=== PATIENT | female | born 1940 | race Caucasian/White ===

== ENCOUNTER 2021-08-01 07:26 | Inpatient (IN) ==
[2021-07-31 12:52] LABS: Basophils % 0.7 % (0.0-0.8); Eosinophils # 0.3 10*3/uL (0.0-0.87); Eosinophils % 6.2 % (0.00-10.9); Hemoglobin 12.1 GM/DL (12.0-16.0); Immature Granulocytes % 0.2 %; Immature Granulocytes Absolute 0.01 #; Lymphocytes # 1.6 10*3/uL (1.4-4.0); Mean Corpuscular HGB Conc 30.3 GM/DL (32-36); Mean Corpuscular Volume 89.7 FL (87-102); Mean Platelet Volume 12.2 FL (9.6-12.0); Monocytes % 5.6 % (1.7-12.7); Neutrophils % 58.3 % (38.7-73.9); Platelet Count 311 T/CUMM (130-400); Red Blood Count 4.46 MC/CUMM (3.8-5.5); Red Cell Distribution Width 15.4 % (9.3-17.3); White Blood Count 5.3 T/CUMM (4-12)
[2021-07-31 13:04] LABS: Mucus,Urine Occasional /LPF (Occasional); RBC,Urine <1 /HPF (0-4); Triple Phosphate Crystal,Urine Occasional /HPF (Few); Uric Acid Crystals,Urine Moderate /HPF (<1)
[2021-07-31 13:05] LABS: Bilirubin,Urine Negative (Negative); Blood, Urine Negative (Negative); Glucose,Urine (UA) Negative (Negative); Ketones,Urine Negative (Negative); Nitrite,Urine Negative (Negative); Protein,Urine Negative (Negative); Urine Appearance Clear (Clear); Urine Color Yellow (Yellow); Urine Specific Gravity > 1.030 (1.001-1.035); Urine Urobilinogen 0.2 eU/dL (<2.0)
[2021-07-31 13:06] LABS: Alanine Aminotransferase 17 U/L (13-56); Albumin 3.5 G/DL (3.4-5.0); Alkaline Phosphatase 104 U/L (45-117); Aspartate Amino Transferase 24 U/L (0-37); Bilirubin,Total < 0.39 MG/DL (0.20-1.00); Blood Urea Nitrogen 24 MG/DL (7-18); Calcium 9.4 MG/DL (8.5-10.1); Carbon Dioxide 26 MMOL/L (21-32); Estimated Glom Filtration Rate 43 ML/MIN; Glucose 79 MG/DL (74-106); Potassium 4.6 MMOL/L (3.5-5.1); Sodium 136 MMOL/L (136-145); Total Protein 7.9 G/DL (6.4-8.2)
[2021-07-31 14:01] LABS: Sedimentation Rate-Westergren 40 MM/HR (0-30)
[2021-08-01] MEDS ORDERED: propofoL 200 MG/20 ML VIAL IV ONE (09:15)
[2021-08-01] MEDS ORDERED: LIDOCAINE 2% 5 ML VIAL ONE (09:15)
[2021-08-01] MEDS ORDERED: fentaNYL 100 MCG/2 ML VIAL ONE (09:15)
[2021-08-01] MEDS ORDERED: ROCURONIUM 50 MG/5 ML VIAL IV ONE (09:15)
[2021-08-01] MEDS ORDERED: BACITRACIN OINT 0.9 GM PACK TOP ONE (09:20)
[2021-08-01] MEDS ORDERED: ROPIVACAINE 0.5% 30 ML VIAL ONE (09:24)
[2021-08-01] MEDS: LACTATED RINGERS 1,000 ML IV SCH ×3 (09:51→22:04)
[2021-08-01] MEDS ORDERED: ePHEDrine 50 MG/ML VIAL ONE (10:15)
[2021-08-01] MEDS ORDERED: MAGNESIUM HYDROXIDE SUSP 30 ML UDCUP PO PRN (10:19)
[2021-08-01] MEDS ORDERED: ONDANSETRON 4 MG/2 ML VIAL IV PRN (10:21)
[2021-08-01] MEDS ORDERED: diphenhydrAMINE CAP 25 MG CAPSULE PO PRN (10:21)
[2021-08-01] MEDS ORDERED: LACTATED RINGERS 1,000 ML IV SCH (10:30)
[2021-08-01] MEDS ORDERED: ONDANSETRON 4 MG/2 ML VIAL ONE (10:38)
[2021-08-01] MEDS ORDERED: NEOSTIGMINE 10 MG/10 ML VIAL ONE (10:38)
[2021-08-01] MEDS ORDERED: ACETAMINOPHEN INJ 1,000 MG/100 ML VIAL IV ONE (10:38)
[2021-08-01] MEDS ORDERED: GLYCOPYRROLATE 0.4 MG/2 ML VIAL ONE (10:38)
[2021-08-01] MEDS ORDERED: SEVOFLURANE 1 UNIT/15 MINUTE INH ONE (10:38)
[2021-08-01] MEDS ORDERED: ETOMIDATE 40 MG/20 ML VIAL IV ONE (10:38)
[2021-08-01] MEDS ORDERED: ESMOLOL 100 MG/10 ML VIAL IV ONE (10:50)
[2021-08-01] MEDS: KETOROLAC 15 MG/1 ML VIAL IV PRN ×2 (16:04→22:03)
[2021-08-02] MEDS: FONDAPARINUX 2.5 MG/0.5 ML SYRINGE SUBCUT SCH (06:01)
[2021-08-02] MEDS: PANTOPRAZOLE 40 MG TABLET PO SCH (09:10)
[2021-08-02] MEDS: MULTIVITAMIN (CENTRUM) TABLET PO SCH (09:10)
[2021-08-02] MEDS: KETOROLAC 15 MG/1 ML VIAL IV PRN (09:12)
[2021-08-02] MEDS: LACTATED RINGERS 1,000 ML IV SCH (18:35)
[2021-08-03] MEDS: FONDAPARINUX 2.5 MG/0.5 ML SYRINGE SUBCUT SCH (04:52)
[2021-08-03] MEDS: MULTIVITAMIN (CENTRUM) TABLET PO SCH (08:17)
[2021-08-03] MEDS: PANTOPRAZOLE 40 MG TABLET PO SCH (08:17)
[2021-08-03] MEDS ORDERED: KETOROLAC 15 MG/1 ML VIAL IM PRN (10:18)
[2021-08-03] MEDS ORDERED: KETOROLAC 15 MG/1 ML VIAL IV PRN (18:13)
[2021-08-03] MEDS: LACTATED RINGERS 1,000 ML IV SCH (18:14)
[2021-08-04] MEDS: FONDAPARINUX 2.5 MG/0.5 ML SYRINGE SUBCUT SCH (06:48)
[2021-08-04 07:11] LABS: Basophils % 0.8 % (0.0-0.8); Eosinophils # 0.5 10*3/uL (0.0-0.87); Eosinophils % 9.7 % (0.00-10.9); Hematocrit 35.2 VOL% (35.7-47.0); Hemoglobin 10.7 GM/DL (12.0-16.0); Immature Granulocytes % 0.2 %; Immature Granulocytes Absolute 0.01 #; Lymphocytes # 1.9 10*3/uL (1.4-4.0); Lymphocytes % 37.6 % (21.3-54.2); Mean Corpuscular HGB Conc 30.4 GM/DL (32-36); Mean Corpuscular Volume 89.6 FL (87-102); Monocytes % 6.6 % (1.7-12.7); Neutrophils % 45.1 % (38.7-73.9); Platelet Count 274 T/CUMM (130-400); Red Blood Count 3.93 MC/CUMM (3.8-5.5); Red Cell Distribution Width 15.3 % (9.3-17.3)
[2021-08-04 07:32] LABS: Calcium 8.9 MG/DL (8.5-10.1); Osmolality,Calculated 277.5 MOS/KG (273-304); Potassium 3.9 MMOL/L (3.5-5.1)
[2021-08-04] MEDS: LACTATED RINGERS 1,000 ML IV SCH (08:06)
[2021-08-04] MEDS: MULTIVITAMIN (CENTRUM) TABLET PO SCH (10:12)
[2021-08-04] MEDS: PANTOPRAZOLE 40 MG TABLET PO SCH (10:12)
[2021-08-05] MEDS: FONDAPARINUX 2.5 MG/0.5 ML SYRINGE SUBCUT SCH ×2 (05:31→05:44)
[2021-08-05] MEDS: MULTIVITAMIN (CENTRUM) TABLET PO SCH (08:34)
[2021-08-05] MEDS: PANTOPRAZOLE 40 MG TABLET PO SCH (08:34)
[2021-08-05] MEDS: LACTATED RINGERS 1,000 ML IV SCH (09:51)
[2021-08-06] MEDS: FONDAPARINUX 2.5 MG/0.5 ML SYRINGE SUBCUT SCH (04:32)
[2021-08-06] MEDS: MULTIVITAMIN (CENTRUM) TABLET PO SCH (09:56)
[2021-08-06] MEDS: PANTOPRAZOLE 40 MG TABLET PO SCH (09:56)
[2021-08-07] MEDS: FONDAPARINUX 2.5 MG/0.5 ML SYRINGE SUBCUT SCH (05:19)
[2021-08-07 07:46] LABS: Basophils % 0.7 % (0.0-0.8); Eosinophils # 0.6 10*3/uL (0.0-0.87); Eosinophils % 10.3 % (0.00-10.9); Hematocrit 34.3 VOL% (35.7-47.0); Hemoglobin 10.5 GM/DL (12.0-16.0); Immature Granulocytes % 0.4 %; Immature Granulocytes Absolute 0.02 #; Lymphocytes # 1.8 10*3/uL (1.4-4.0); Lymphocytes % 33.3 % (21.3-54.2); Mean Corpuscular HGB Conc 30.6 GM/DL (32-36); Mean Corpuscular Volume 90.5 FL (87-102); Mean Platelet Volume 11.4 FL (9.6-12.0); Monocytes % 6.1 % (1.7-12.7); Neutrophils % 49.2 % (38.7-73.9); Platelet Count 252 T/CUMM (130-400); Red Blood Count 3.79 MC/CUMM (3.8-5.5); Red Cell Distribution Width 15.4 % (9.3-17.3); White Blood Count 5.4 T/CUMM (4-12)
[2021-08-07 08:02] LABS: Calcium 8.7 MG/DL (8.5-10.1); Osmolality,Calculated 281.5 MOS/KG (273-304); Potassium 4.1 MMOL/L (3.5-5.1)
[2021-08-07] MEDS: PANTOPRAZOLE 40 MG TABLET PO SCH (09:35)
[2021-08-07] MEDS: MULTIVITAMIN (CENTRUM) TABLET PO SCH (09:35)
[2021-08-07] MEDS ORDERED: TUBERCULIN SKIN TEST 0.1 ML SYRINGE INTRADERM ONE (17:30)
[2021-08-08] MEDS: FONDAPARINUX 2.5 MG/0.5 ML SYRINGE SUBCUT SCH (05:01)
[2021-08-08] MEDS: PANTOPRAZOLE 40 MG TABLET PO SCH (08:44)
[2021-08-08] MEDS: MULTIVITAMIN (CENTRUM) TABLET PO SCH (08:44)
[2021-08-09] MEDS: FONDAPARINUX 2.5 MG/0.5 ML SYRINGE SUBCUT SCH (05:37)
[2021-08-09] MEDS: PANTOPRAZOLE 40 MG TABLET PO SCH (09:31)
[2021-08-09] MEDS: MULTIVITAMIN (CENTRUM) TABLET PO SCH (09:31)
[2021-08-10] MEDS: FONDAPARINUX 2.5 MG/0.5 ML SYRINGE SUBCUT SCH (05:55)
[2021-08-10] MEDS: MULTIVITAMIN (CENTRUM) TABLET PO SCH (08:53)
[2021-08-10] MEDS: PANTOPRAZOLE 40 MG TABLET PO SCH (08:53)
[2021-08-11] MEDS: FONDAPARINUX 2.5 MG/0.5 ML SYRINGE SUBCUT SCH (06:14)
[2021-08-11] MEDS: MULTIVITAMIN (CENTRUM) TABLET PO SCH (08:40)
[2021-08-11] MEDS: PANTOPRAZOLE 40 MG TABLET PO SCH (10:16)
[2021-08-12] MEDS: FONDAPARINUX 2.5 MG/0.5 ML SYRINGE SUBCUT SCH (05:29)
[2021-08-12] MEDS: PANTOPRAZOLE 40 MG TABLET PO SCH (09:02)
[2021-08-12] MEDS: MULTIVITAMIN (CENTRUM) TABLET PO SCH (09:02)
[2021-08-13] MEDS: FONDAPARINUX 2.5 MG/0.5 ML SYRINGE SUBCUT SCH (04:33)
[2021-08-13] MEDS: MULTIVITAMIN (CENTRUM) TABLET PO SCH (10:19)
[2021-08-13] MEDS: PANTOPRAZOLE 40 MG TABLET PO SCH (10:20)
[2021-08-14] MEDS: FONDAPARINUX 2.5 MG/0.5 ML SYRINGE SUBCUT SCH (05:24)
[2021-08-14] MEDS: PANTOPRAZOLE 40 MG TABLET PO SCH (09:07)
[2021-08-14] MEDS: MULTIVITAMIN (CENTRUM) TABLET PO SCH (09:07)
[2021-08-14 11:39] LABS: Basophils # 0.1 10*3/uL (0.0-0.2); Basophils % 0.8 % (0.0-0.8); Eosinophils # 0.6 10*3/uL (0.0-0.87); Eosinophils % 9.4 % (0.00-10.9); Hematocrit 37.1 VOL% (35.7-47.0); Hemoglobin 11.6 GM/DL (12.0-16.0); Immature Granulocytes % 0.3 %; Immature Granulocytes Absolute 0.02 #; Mean Corpuscular HGB Conc 31.3 GM/DL (32-36); Mean Corpuscular Volume 89.4 FL (87-102); Mean Platelet Volume 11.4 FL (9.6-12.0); Monocytes % 4.8 % (1.7-12.7); Neutrophils % 53.7 % (38.7-73.9); Platelet Count 216 T/CUMM (130-400); Red Blood Count 4.15 MC/CUMM (3.8-5.5); Red Cell Distribution Width 15.7 % (9.3-17.3); White Blood Count 6.5 T/CUMM (4-12)
[2021-08-14 12:02] LABS: Calcium 8.7 MG/DL (8.5-10.1); Osmolality,Calculated 281.4 MOS/KG (273-304); Potassium 4.3 MMOL/L (3.5-5.1)
[2021-08-15] MEDS: FONDAPARINUX 2.5 MG/0.5 ML SYRINGE SUBCUT SCH (04:45)
[2021-08-15] MEDS: MULTIVITAMIN (CENTRUM) TABLET PO SCH (09:27)
[2021-08-15] MEDS: PANTOPRAZOLE 40 MG TABLET PO SCH (09:27)
[2021-08-15 11:44] VITALS: BP 141/75
[2021-08-15 13:51] LABS: QuantiFERON-Tb Gold Pl Positive (Negative); TB2 Ag Minus Result 9.01 IU/mL
== END 2021-08-15 12:02 | disposition swing bed (61) | DRG 493 ==
LOC: N.OR 07:26 → N.SDSINP 07:27 → N.3E 13:41
PROVIDERS: ADMIT Orthopaedic Surgery; ATTEND Orthopaedic Surgery